=== PATIENT | male | born 1985 | race Two or more races ===

== ENCOUNTER 2018-07-11 15:53 | Emergency (ER) | payer MEDICAID ==
[~2018-07-11] VITALS: Ht 175.3 cm; Wt 81.8 kg
[2018-07-11] MEDS ORDERED: acetaminophen 325mg tablet PO ONE (16:45)
[2018-07-11] MEDS ORDERED: sulfamethoxazole/trimethoprim DS (800/160mg) tablet PO ONE (16:45)
[2018-07-11] MEDS ORDERED: ibuprofen tablet 400 MG TABLET PO ONE (16:45)
[2018-07-11] MEDS ORDERED: CefTRIAXone 1000mg IM Kit (w/lidocaine diluent) IM ONE (16:45)
[2018-07-11] MEDS ORDERED: bacitracin 15gm ointment TP ONE (16:45)
[2018-07-11] MEDS ORDERED: ondansetron 4mg rapidly disintigrating tab PO ONE (16:45)
[2018-07-11] MEDS ORDERED: clindamycin 150mg capsule PO ONE (16:50)
[2018-07-11] MEDS ORDERED: CLIN300C85 PO (16:51)
[2018-07-11] MEDS ORDERED: SULF1TAB49 PO (16:51)
[2018-07-11 17:23] VITALS: BP 127/77
== END 2018-07-11 17:25 | disposition home or self-care (01) ==
LOC: ER 15:53
DX: L03.115 Cellulitis of right lower limb (principal); Z56.0 Unemployment, unspecified
CPT/HCPCS: 73630; 96372; 99284; A6255; A6449; J0696

== ENCOUNTER 2019-10-31 21:16 | Emergency (ER) | payer MEDICAID ==
[~2019-10-31] VITALS: Ht 175.3 cm; Wt 81.0 kg
[~2019-10-31 21:16] MED LIST: CLIN-90 PO
[2019-10-31 21:41] VITALS: BP 119/65
[2019-10-31] MEDS ORDERED: ATI1T PO (23:50)
[2019-10-31] MEDS ORDERED: GABA-532 PO (23:50)
== END 2019-10-31 23:56 | disposition home or self-care (01) ==
LOC: ER 21:16
DX: Z00.8 Encounter for other general examination (principal); F11.90 Opioid use, unspecified, uncomplicated; Z56.0 Unemployment, unspecified; Z79.2 Long term (current) use of antibiotics
CPT/HCPCS: 99281

== ENCOUNTER 2020-03-30 19:42 | Emergency (ER) | payer MEDICAID ==
[~2020-03-30 19:42] MED LIST changes: +ATI1T PO; -CLIN-90 PO; +CLIN-97 PO; +GABA-532 PO
[2020-03-30 19:44] VITALS: BP 136/69
[2020-03-30] MEDS ORDERED: proparacaine 0.5% ophthalmic drops 15ml EACHEYE ONE ×2 (19:50→20:40)
[2020-03-30] MEDS ORDERED: tobramycin/dexamethasone ophthalmic suspension LEFTEYE ONE (20:50)
== END 2020-03-30 21:36 | disposition home or self-care (01) ==
LOC: ER 19:43
DX: S05.02XA Injury of conjunctiva and corneal abrasion without foreign body, left eye, initial encounter (principal); F11.90 Opioid use, unspecified, uncomplicated; Z56.0 Unemployment, unspecified; Z79.899 Other long term (current) drug therapy; X58.XXXA Exposure to other specified factors, initial encounter; Y93.89 Activity, other specified; Y92.89 Other specified places as the place of occurrence of the external cause; Y99.8 Other external cause status
CPT/HCPCS: 99283